=== PATIENT | female | born 1970 | race Hispanic/Latino ===

== ENCOUNTER 2021-05-03 02:31 | Emergency (ER) | payer BC ==
[2021-05-03] MEDS ORDERED: ACETAMINOPHEN 325 MG TABLET ONE (04:55)
--- NOTE | 2021-05-03 05:04 | ER ---
Nurse's Notes [facility] Name: Roxana Francis Age: 51 yrs Sex: Female : 1970 Arrival Date: 05/03/2021 Time: 02:47 Bed 6 Private MD: Diagnosis: Alcohol use, unspecified with intoxication;Fall on same level, unspecified;Contusion, head Presentation: 05/03 02:40 Coronavirus screen: Vaccine status: Patient reports receiving the 2nd dose of the covid mr2 vaccine. Ebola Screen: No symptoms or risks identified at this time. Initial Sepsis Screen: Does the patient meet any 2 criteria? No. Patient's initial sepsis screen is negative. Does the patient have a suspected source of infection? No. Patient's initial sepsis screen is negative. Risk Assessment: Do you want to hurt yourself or someone else? Patient reports no desire to harm self or others. Onset of symptoms was May 03, 2021. 02:48 Chief complaint: Patient states: per ems pt was at home drinking when she was found mr2 unconscious on the ground. Family believes she fell and hit her head, was down for an unknown length of time. small amount of blood was on ground next to pt and she has small 2cm hematoma on R posterior parietal. no active bleeding or deformities noted pt alert and intoxicated difficult to redirect. Care prior to arrival: Placed on backboard. Mechanism of Injury: Fall from standing position. Trauma event details: Injury occurred in the [facility], Injury occurred: at home. Injury occurred: May 03, 2021 Injury occurred at: 02:00. 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 - Social history:: Smoking status: Patient denies any tobacco usage or history of. Screenin:00 Abuse screen: Denies threats or abuse. Denies injuries from another. Tuberculosis mr2 screening: No symptoms or risk factors identified. 03:00 Fall Risk Fall in past 12 months (25 points). IV access (20 points). Ambulatory Aid- mr2 Gait- Impaired (20 pts.). Mental Status- Overestimates/Forgets Limitations (15 pts.). 05:39 Nutritional screening: No deficits noted. mr2 Primary Survey: 02:48 NO uncontrolled hemorrhage observed. A: Airway: patent. Breathing/Chest: Respiratory mr2 pattern: regular, Respiratory effort: spontaneous, unlabored, Breath sounds: clear, Chest inspection: symmetrical rise and fall of the chest. Circulation: Pulses: palpable right radial artery, right dorsalis pedis artery, left radial artery and left dorsalis pedis artery. Disability Alert. Exposure/Environment: All clothing and personal items were removed. Forensic evidence collection is not deemed to be indicated at this time. Items placed in patient belonging bag. There is no evidence of uncontrolled external bleeding. 04:00 Reassessment Breathing/Chest Respiratory pattern Regular Respiratory effort Spontaneous mr2 Breath sounds Clear Chest inspection Symmetrical. Secondary Survey: 02:48 HEENT:. Gastrointestinal: No deficits noted. : Reports incontinence. Musculoskeletal: mr2 No deficits noted. Assessment: 02:48 General: Appears distressed, obese, unkempt, Behavior is anxious, fussy, inappropriate mr2 for age, Smells of alcohol. Pain: Denies pain. Vital Signs: 03:00 BP 155 / 88; Pulse 88; Resp 19; Temp 98.2; Pulse Ox 98% on R/A; Weight 99.79 kg; Height mr2 5 ft. 2 in. (157.48 cm); Pain 2/10; 03:00 Body Mass Index 40.24 (99.79 kg, 157.48 cm) mr2 [place] Coma Score: 03:00 Eye Response: spontaneous(4). Verbal Response: oriented(5). Motor Response: obeys mr2 commands(6). Total: 15. Trauma Score (Adult): 03:00 Eye Response: spontaneous(1); Verbal Response: oriented(1); Motor Response: obeys mr2 commands(2); Systolic BP: > 89 mm Hg(4); Respiratory Rate: 10 to 29 per min(4); Donna Score: 15; Trauma Score: 12 ED Course: 02:40 Patient notified of wait time. mr2 02:47 Patient arrived in ED. 02:47 Josh Smith MD is Attending Physician. [facility] 02:48 Jovany Sibley, RN is Primary Nurse. mr2 02:59 Triage completed. mr2 03:00 Patient has correct armband on for positive identification. Bed in low position. Side mr2 rails up X2. 03:00 Patient maintains SpO2 saturation greater than 95% on room air. mr2 03:00 Thermoregulation: warm blanket given to patient. mr2 03:19 CT Head C Spine In Process Unspecified. EDMS 03:30 No provider procedures requiring assistance completed. Patient did not have IV access mr2 during this emergency room visit. Administered Medications: 04:57 Drug: Tylenol 1000 mg Route: PO; mr2 Intake: 04:00 PO: 0ml; Total: 0ml. mr2 Output: 04:00 Urine: 0ml; Total: 0ml. mr2 Outcome: 04:00 Patient's length of stay was not longer than 2 hours. mr2 05:[address] [facility] 05:10 Discharged to home via wheelchair, with family. mr2 05:10 Condition: stable 05:10 Discharge instructions given to patient. 06:06 Patient left the ED. ds4 Signatures: Dispatcher [employer] EDWalt Roy ds4 Josh Smith MD MD Camila Nolan Jovany Sibley, RN RN mr2
--- NOTE | 2021-05-03 05:05 | EDPHYS ---
Physician Documentation [facility] Name: Roxana Francis Age: 51 yrs Sex: Female : 1970 Arrival Date: 05/03/2021 Time: 02:47 Bed 6 Private MD: ED Physician Josh Smith HPI: 05/03 02:59 This 51 yrs old Female presents to ER via Unassigned with complaints of Fall mh7 Injury. 02:59 Details of fall: The patient fell from an upright position, while walking, and struck a mh7 concrete surface. Onset: The symptoms/episode began/occurred just prior to arrival, today. Associated injuries: The patient sustained injury to the head, contusion. Severity of symptoms: At their worst the symptoms were moderate, earlier today, in the emergency department the symptoms have improved, moderately. 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 She mh7 later was witnessed to trip and fall and hit her head on the ground. Unknown if LOC. No other injuries were noted.. 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 - Social history:: Smoking status: Patient denies any tobacco usage or history of. ROS: 03:22 Constitutional: Negative for fever, chills, and weight loss, Eyes: Negative for injury, mh7 pain, redness, and discharge, ENT: Negative for injury, pain, and discharge, Neck: Negative for injury, pain, and swelling, Cardiovascular: Negative for chest pain, palpitations, and edema, Respiratory: Negative for shortness of breath, cough, wheezing, and pleuritic chest pain, Abdomen/GI: Negative for abdominal pain, nausea, vomiting, diarrhea, and constipation, Back: Negative for injury and pain, : Negative for injury, bleeding, discharge, and swelling, MS/Extremity: Negative for injury and deformity, Skin: Negative for injury, rash, and discoloration, Neuro: Negative for headache, weakness, numbness, tingling, and seizure, Psych: Negative for depression, anxiety, suicide ideation, homicidal ideation, and hallucinations, Allergy/Immunology: Negative for hives, rash, and allergies, Endocrine: Negative for neck swelling, polydipsia, polyuria, polyphagia, and marked weight changes, Hematologic/Lymphatic: Negative for swollen nodes, abnormal bleeding, and unusual bruising. Exam: 03:22 Neck: Trachea midline, no thyromegaly or masses palpated, and no cervical mh7 lymphadenopathy. Supple, full range of motion without nuchal rigidity, or vertebral point tenderness. No Meningismus. Chest/axilla: Normal chest wall appearance and motion. Nontender with no deformity. No lesions are appreciated. Cardiovascular: Regular rate and rhythm with a normal S1 and S2. No gallops, murmurs, or rubs. Normal PMI, no JVD. No pulse deficits. Respiratory: Lungs have equal breath sounds bilaterally, clear to auscultation and percussion. No rales, rhonchi or wheezes noted. No increased work of breathing, no retractions or nasal flaring. Abdomen/GI: Soft, non-tender, with normal bowel sounds. No distension or tympany. No guarding or rebound. No evidence of tenderness throughout. Back: No spinal tenderness. No costovertebral tenderness. Full range of motion. Skin: Warm, dry with normal turgor. Normal color with no rashes, no lesions, and no evidence of cellulitis. MS/ Extremity: Pulses equal, no cyanosis. Neurovascular intact. Full, normal range of motion. 03:22 Constitutional: The patient appears in no acute distress, alert, awake, anxious. 03:22 Head/Face: Normocephalic, atraumatic. Eyes: Pupils equal round and reactive to light, mh7 extra-ocular motions intact. Lids and lashes normal. Conjunctiva and sclera are non-icteric and not injected. Cornea within normal limits. Periorbital areas with no swelling, redness, or edema. ENT: Nares patent. No nasal discharge, no septal abnormalities noted. Tympanic membranes are normal and external auditory canals are clear. Oropharynx with no redness, swelling, or masses, exudates, or evidence of obstruction, uvula midline. Mucous membranes moist. 03:22 Neuro: Orientation: unable to test, the patient is clinically intoxicated, Mentation: mh7 unable to test, the patient is clinically intoxicated, Memory: unable to test, the patient is clinically intoxicated, Cranial nerves: unable to test, the patient is clinically intoxicated, Cerebellar function: unable to test, the patient is clinically intoxicated, Motor: moves all fours, Sensation: no obvious gross deficits, Gait: not tested. seizure activity, is not displayed by the patient, Abnormal movements: there are no abnormal movements. Vital Signs: 03:00 BP 155 / 88; Pulse 88; Resp 19; Temp 98.2; Pulse Ox 98% on R/A; Weight 99.79 kg; Height mr2 5 ft. 2 in. (157.48 cm); Pain 2/10; 03:00 Body Mass Index 40.24 (99.79 kg, 157.48 cm) mr2 Donna Coma Score: 03:00 Eye Response: spontaneous(4). Verbal Response: oriented(5). Motor Response: obeys mr2 commands(6). Total: 15. Trauma Score (Adult): 03:00 Eye Response: spontaneous(1); Verbal Response: oriented(1); Motor Response: obeys mr2 commands(2); Systolic BP: > 89 mm Hg(4); Respiratory Rate: 10 to 29 per min(4); Donna Score: 15; Trauma Score: 12 MDM: 05:01 Differential diagnosis: abrasion, closed head injury, contusion, fracture. Data [facility] reviewed: vital signs, nurses notes, EMS record, radiologic studies, CT scan. Data interpreted: Pulse oximetry: on room air is 98 %. Interpretation: normal. Counseling: I had a detailed discussion with the patient and/or guardian regarding: the historical points, exam findings, and any diagnostic results supporting the discharge/admit diagnosis, the presence of at least one elevated blood pressure reading (>120/80) during this emergency department visit, radiology results, the need for outpatient follow up, to return to the emergency department if symptoms worsen or persist or if there are any questions or concerns that arise at home. Response to treatment: the patient's symptoms have markedly improved after treatment. 05:04 Patient medically screened. 7 05/03 02:52 Order name: CT Head C Spine mh7 Administered Medications: 04:57 Drug: Tylenol 1000 mg Route: PO; mr2 Disposition Summary: 05/03/21 05:04 Discharge Ordered Location: Home [facility] Problem: new mh7 Symptoms: have improved mh7 Condition: Stable mh7 Diagnosis - Alcohol use, unspecified with intoxication mh7 - Fall on same level, unspecified mh7 - Contusion, head [facility] Followup: [facility] - With: Private Physician - When: 1 - 2 days - Reason: Worsening of condition, Recheck today's complaints, Continuance of care, Re-evaluation by your physician Discharge Instructions: - Discharge Summary Sheet 7 - Alcohol Intoxication, [id number] - Facial or Scalp Contusion, [id number] [facility] Forms: - Medication Reconciliation Form [facility] - Thank You Letter [facility] - Antibiotic Education [facility] - Prescription Opioid Use [facility] Signatures: Dispatcher [employer] EDJosh Vick MD MD 7 Jovany Sibley RN RN mr2
[2021-05-03 06:18] VITALS: BP 155/88; TEMP 98.2; O2SAT 98
--- NOTE | 2021-05-03 18:22 | RAD REPORT ---
EXAM DESCRIPTION: CT - [id number] - 05/03/2021 6:45 am CLINICAL HISTORY: Trauma COMPARISON: None. TECHNIQUE: CT HEAD AND CERVICAL SPINE WITHOUT CONTRAST on 05/03/2021 2:52 AM CLAM PICKER This exam was performed according to our departmental dose-optimization program, which includes autom ated exposure control, adjustment of the mA and/or kV according to patient size and/or use of iterati ve reconstruction technique. FINDINGS: Brain: There is no acute hemorrhage, mass effect or midline shift. Bowens-white differentiat ion is preserved. There is no hydrocephalus. There is no significant volume loss for age. There is a small posterior left parietal scalp contusion. The calvarium is intact. Orbits and globes are unremarkable. The paranasal sinuses are clear. Mastoid air cells are clear. Cervical Spine: There is no acute fracture. Alignment is anatomic. Disc spaces are maintained. Vertebral body heights are preserved. Soft tissues are unremarkable. IMPRESSION: No acute hemorrhage or fracture. Electronically signed by: Ghulam Olsen MD 05/03/2021 4:11 AM CLAM PICKER Due to temporary technical issues with the PACS/Fluency reporting system, reports are being signed by the in house radiologists without review as a courtesy to insure prompt reporting. The interpreting radiologist is fully responsible for the content of the report.
== END 2021-05-03 06:06 | disposition home or self-care (01) ==
LOC: ER 02:31
DX: S00.93XA Contusion of unspecified part of head, initial encounter (principal); F10.129 Alcohol abuse with intoxication, unspecified; W01.10XA Fall on same level from slipping, tripping and stumbling with subsequent striking against unspecified object, initial encounter; Y93.89 Activity, other specified; Y92.9 Unspecified place or not applicable
CPT/HCPCS: 70450; 72125; 99284